=== PATIENT | female | born 1990 ===

== ENCOUNTER → 2016-12-02 | Outpatient (CLI) | payer OTHER ==
[~2016-12-02] MED LIST: FERR1TAB23 PO; MISC-696; PRENTAB26 PO; VNTHFA/IN INH
[2016-12-02 18:21] LABS: URINE APPEARANCE CLEAR (CLEAR); URINE BILIRUBIN NEG (NEG); URINE COLOR YELLOW; URINE NITRITE NEG (NEG); URINE SPECIFIC GRAVITY 1.011 (1.000-1.030); UROBILINOGEN NEG (NEG)
[2016-12-02 18:25] LABS: MANUAL MICROSCOPIC REQUIRED? NO; REVIEW REQ? NO
== END | disposition home or self-care (01) ==
LOC: C.LABSPEC 17:40
PROVIDERS: ATTEND Obstetrics & Gynecology
DX: Z34.01 Encounter for supervision of normal first pregnancy, first trimester (principal)

== ENCOUNTER → 2016-12-03 | Outpatient (CLI) | payer OTHER | END | disposition home or self-care (01) | LOC: C.PAPS 16:38 | PROVIDERS: ATTEND Obstetrics & Gynecology | DX: Z34.01 Encounter for supervision of normal first pregnancy, first trimester (principal) ==

== ENCOUNTER → 2016-12-03 | Outpatient (CLI) | payer OTHER ==
[2016-12-03 14:41] LABS: BASO % 0.2 %; BASO ABS # 0.03 K/uL (0-0.2); COMPLETE YES; EOS % 4.3 %; IG% 0.2 %; LYMPH % 14.4 %; LYMPH ABS # 1.85 K/uL (1.2-3.4); MEAN CELL VOLUME 89.2 fL (80-100); MEAN CORPUSCULAR HEMOGLOBIN 31.7 pg (25-34); MEAN CORPUSCULAR HGB CONC 35.5 g/dl (32-36); MEAN PLATELET VOLUME 11.4 fL (7.4-10.4); MONO % 5.6 %; NEUT % 75.3 %; PLATELET COUNT 265 K/uL (130-400); RED BLOOD COUNT 4.26 M/uL (4.2-5.4); WHITE BLOOD COUNT 12.89 K/uL (4.8-10.8)
[2016-12-07 09:32] LABS: CHLAMYDIA TRACH RNA*** NOT DETECTED (NOT DETECTED); GC (NEIS GONORRHOEAE)RNA** NOT DETECTED (NOT DETECTED)
== END | disposition home or self-care (01) ==
LOC: C.LAB1850 12:21
PROVIDERS: ATTEND Obstetrics & Gynecology
DX: Z34.01 Encounter for supervision of normal first pregnancy, first trimester (principal)

== ENCOUNTER → 2017-02-02 | Outpatient (CLI) | payer OTHER ==
[2017-02-02 15:15] LABS: GTGD 50 Grams
== END | disposition home or self-care (01) ==
LOC: C.LAB1850 12:29
PROVIDERS: ATTEND Obstetrics & Gynecology
DX: Z34.02 Encounter for supervision of normal first pregnancy, second trimester (principal)

== ENCOUNTER → 2017-04-18 | Outpatient (CLI) | payer OTHER ==
[2017-04-18 16:13] LABS: MANUAL MICROSCOPIC REQUIRED? NO; REVIEW REQ? NO; URINE APPEARANCE CLEAR (CLEAR); URINE BILIRUBIN NEG (NEG); URINE COLOR YELLOW; URINE NITRITE NEG (NEG); URINE SPECIFIC GRAVITY 1.016 (1.000-1.030); UROBILINOGEN NEG (NEG)
== END | disposition home or self-care (01) ==
LOC: C.LABSPEC 15:04
PROVIDERS: ATTEND Obstetrics & Gynecology
DX: Z34.03 Encounter for supervision of normal first pregnancy, third trimester (principal)

== ENCOUNTER → 2017-04-18 | Outpatient (CLI) | payer OTHER ==
[2017-04-18 13:03] LABS: HEMATOCRIT 32.9 % (37-47)
[2017-04-18 13:28] LABS: GTGD 50 Grams
== END | disposition home or self-care (01) ==
LOC: C.LAB1850 11:57
PROVIDERS: ATTEND Obstetrics & Gynecology
DX: Z34.03 Encounter for supervision of normal first pregnancy, third trimester (principal)

== ENCOUNTER → 2017-05-24 | Outpatient (CLI) | payer OTHER ==
[2017-05-24 16:59] LABS: ALT/SGPT 25 U/L (12-78); BLOOD UREA NITROGEN 10 mg/dl (7-18); BUN/CREATININE RATIO 14.9 (10-20); CALCIUM 9.4 mg/dl (8.5-10.1); CARBON DIOXIDE 24 mmol/L (21-32); CHLORIDE 105 mmol/L (98-107); GLUCOSE 76 mg/dl (70-99); POTASSIUM 3.8 mmol/L (3.5-5.1); SODIUM 138 mmol/L (136-145)
[2017-05-24 17:02] LABS: ALB/GLOB RATIO 0.6 (0.9-2); ALKALINE PHOSPHATASE 102 U/L (45-117); AST/SGOT 20 U/L (15-37)
[2017-06-02 22:20] LABS: CHENODEOXYCHOLIC ACID 2.6 umol/L (< OR = 3.1); CHOLIC ACID <0.5 umol/L (< OR = 1.8); DEOXYCHOLIC ACID 0.5 umol/L (< OR = 2.4); TOTAL BILE ACIDS 3.1 umol/L (< OR = 6.8)
== END | disposition home or self-care (01) ==
LOC: C.LAB1850 15:48
PROVIDERS: ATTEND Obstetrics & Gynecology
DX: O99.713 Diseases of the skin and subcutaneous tissue complicating pregnancy, third trimester (principal)

== ENCOUNTER 2017-06-13 18:00 | Inpatient (IN) | payer OTHER ==
[~2017-06-13] VITALS: Ht 154.9 cm; Wt 82.5 kg
[2017-06-13] MEDS ORDERED: LACTATED RINGER'S 1000ML 1,000 ML IV PRN (19:36)
[2017-06-13] MEDS ORDERED: PRENTAB26 PO (19:45)
[2017-06-13] MEDS ORDERED: FERR1TAB23 PO (19:45)
[2017-06-13] MEDS ORDERED: PENICILLIN G POTASSIUM IV 3 MU in DEXTROSE 5% 100ML 100 ML IV PRN (19:45)
[2017-06-13] MEDS ORDERED: VNTHFA/IN INH (19:45)
[2017-06-13 19:51] VITALS: Ht 154.9 cm; Wt 82.5 kg
[2017-06-13] MEDS ORDERED: EpHEDrine SULFATE INJ 50 MG/ML AMP ONE (19:55)
[2017-06-13] MEDS ORDERED: BUPIVACAINE 0.25% 30 ML VIAL ONE ×2 (19:55→21:20)
[2017-06-13] MEDS ORDERED: FENTANYL CITRATE INJ 50 MCG/1 ML 2 ML VIAL ONE (19:56)
[2017-06-13] MEDS ORDERED: FENTANYL 2MCG/ML ROPIV 1.25MG/ML 100ML BAG EPI ONE (19:56)
[2017-06-13] MEDS ORDERED: PENICILLIN G POTASSIUM IV 6 MU in DEXTROSE 5% 250ML 250 ML IV ONE (20:00)
[2017-06-13 20:10] LABS: MEAN CORPUSCULAR HGB CONC 33.8 g/dl (32-36)
[2017-06-13 20:30] LABS: HEMATOCRIT 33.4 % (37-47); MEAN CELL VOLUME 86.8 fL (80-100); MEAN CORPUSCULAR HEMOGLOBIN 29.4 pg (25-34); PLATELET COUNT 140 K/uL (130-400); PLT ESTIMATE NORMAL; RED BLOOD COUNT 3.85 M/uL (4.2-5.4)
[2017-06-13] MEDS: LACTATED RINGER'S 1000ML 1,000 ML IV SCH ×2 (20:42→22:41)
[2017-06-13] MEDS ORDERED: NALOXONE HCL INJ 1 MG in SODIUM CHLORIDE 0.9% 1000ML 1,000 ML IV PRN (21:46)
[2017-06-13] MEDS ORDERED: LACTATED RINGER'S 1000ML 500 ML IV PRN ×2 (21:46→22:11)
[2017-06-13] MEDS ORDERED: ONDANSETRON INJ 2 MG/ML 2 ML VIAL IV PRN (22:00)
[2017-06-13] MEDS ORDERED: NALBUPHINE HCL INJ 10 MG/ML AMP IV PRN (22:00)
[2017-06-13] MEDS ORDERED: EpHEDrine SULFATE INJ 50 MG/ML AMP IV PRN (22:00)
[2017-06-13] MEDS ORDERED: DiphenhydrAMINE HCL 50 MG/ML VIAL IV PRN (22:00)
[2017-06-13] MEDS ORDERED: NALOXONE HCL INJ 0.4 MG/1 ML VIAL/CARP IV PRN (22:00)
[2017-06-13] MEDS ORDERED: FENTANYL 2MCG/ML ROPIV 1.25MG/ML 100ML BAG EPI PRN (22:00)
[2017-06-13] MEDS ORDERED: OXYTOCIN 30 UNITS/500ML NSS IV PRN (22:15)
[2017-06-13] MEDS ORDERED: CALCIUM CARBONATE 500 MG CHEWABLE PO PRN (22:30)
[2017-06-13] MEDS ORDERED: RANITIDINE HCL 150 MG TAB PO ONE (22:30)
[2017-06-14] MEDS ORDERED: ACETAMINOPHEN 325 MG TAB PO PRN (00:30)
[2017-06-14] MEDS ORDERED: OXYTOCIN 30 UNITS/500ML NSS IV PRN (00:30)
[2017-06-14] MEDS ORDERED: LANOLIN OINT EXT PRN ×2 (00:30)
[2017-06-14] MEDS ORDERED: HYDROCORTISONE ACETATE 25 MG SUPP PR PRN (00:30)
[2017-06-14] MEDS ORDERED: OXYCODONE/ACETAMINOPHEN 5-325 TAB PO PRN (00:30)
[2017-06-14] MEDS ORDERED: SUPERCREAM 0.870 % 15GM JAR EXT PRN (00:30)
[2017-06-14] MEDS ORDERED: BENZOCAINE 20% AER SPR 82.5 GM CAN EXT PRN (00:30)
[2017-06-14] MEDS ORDERED: METHYLERGONOVINE MALEATE 0.2 MG/ML AMP ONE (01:17)
[2017-06-14] MEDS ORDERED: NURSING VERBAL MED ORDER ONE ×2 (01:45→02:15)
[2017-06-14] MEDS ORDERED: MoRPHine SULFATE 10 MG/ML CARP/VIAL ONE (01:46)
--- NOTE | 2017-06-14 02:13 | Progress Note ---
Progress Note Date of Service Jun 14, 2017. Progress Note Called to patient room for large blood clots per vagina. Patient is awake, feeling well, talking. Vitals stable. Pelvic exam reveals multiple clots - administered 6mg morphine IM for pain control, repeated exam, extracted multiple large clots. Chux with clots weighed - 860g. Vaginal bleeding appears to have stopped, patient's vitals remain stable and she remains asymptomatic. Will continue to monitor.
[2017-06-14 06:05] VITALS: BP 132/77; PULSE 95; TEMP 36.9; O2SAT 97
--- NOTE | 2017-06-14 07:26 | DELIVERY SUMMARY ---
DATE OF OPERATION: 06/13/2017 NOTICE TO RECEIVING [facility]ENCY This information is strictly Confidential and protected under [place] law. [place] law prohibits you from making any further disclosure of this information unless further disclosure is expressly permitted by the written consent of the person to whom it pertains or is authorized by law. A general authorization for the release of medical or other information is not sufficient for this purpose. Hospital accepts no responsibility if the information is made available to any other person, INCLUDING THE PATIENT. PRE-DELIVERY DIAGNOSES: 1. 27-year-old at 36 weeks 1 day. 2. Premature rupture of membranes 3. Depression and anxiety. 4. Ultrasound findings with kidney cyst not seen on repeat scan and dilated bowel. 5. Pruritus with negative Bile acids and LFT. 6. Asthma. 7. Family history of patient's mother delivering G1 first baby with trisomy 18. POST-DELIVERY DIAGNOSES: Same. PROCEDURES: Spontaneous vaginal delivery and repair of left periclitoral laceration. ANESTHESIA: Epidural. ESTIMATED BLOOD LOSS: 300 mL. FINDINGS: Viable female with Apgars 7 and 9. Weight pending; please see nursery record. DESCRIPTION OF DELIVERY: The patient progressed to complete with epidural anesthesia. She then began to push. She then spontaneously vaginally delivered a viable from the cephalic presentation. The head delivered followed by the anterior and the posterior shoulder and the body. No nuchal cord was noted. The baby was placed on mother's abdomen. A spontaneous cry was heard. The cord was doubly clamped and cut. A cord segment was retained for cord gases. Cord blood was obtained. Placenta was then delivered spontaneously intact with a 3-vessel cord. Pitocin was given. The uterus and vagina were swept of all clots of debris. The uterus became firm. The cervix, vagina and perineum were inspected for lacerations and a left periclitoral laceration was noted. This was repaired using 3-0 Vicryl in running and interrupted stitches. Excellent hemostasis was noted. 1% lidocaine was used to achieve anesthetic pain control during the suturing. The patient and the baby tolerated the delivery well and are recovering in the room. All instrument, needle and sponge counts were correct at the conclusion of the delivery. Estimated blood loss 300 mL. I attest to the content of the Intraoperative Record and any orders documented therein. Any exceptions are noted below. MTDD
[2017-06-14] MEDS: DOCUSATE SODIUM 100 MG CAP PO SCH ×2 (07:39→19:53)
--- NOTE | 2017-06-14 08:08 | Progress Note ---
Subjective Jun 14, 2017. Subjective conversation w/ patient, physical exam, chart review, lab review Ambulation: ambulating normally Voiding: no voiding problems Passing Gas: Yes Diet Tolerance: Regular Diet Lochia: Moderate Feeding Type: Breast Feeding Comment: Pt seen and examined at bedside. Blood clots have resolved. Review of Systems Constitutional: No fever, No chills Respiratory: No shortness of breath Cardiac: No chest pain, No palpitations Abdomen: No nausea, No vomiting Female : No dysuria Objective Vital Signs Date Time Temp Pulse Resp B/P (MAP) Pulse Ox O2 Delivery O2 Flow Rate FiO2 06/14/17 06:08 Room Air 06/14/17 06:05 36.9 95 16 132/77 (95) 97 Room Air Physical Exam General Appearance: WELL-APPEARING, WD/WN, NO APPARENT DISTRESS Fundus: Firm, Tender (appropriately tender), Relation to Umbilicus (1 below u) Extremities: no pedal edema, no calf tenderness Laboratory Results Last 24 Hours Test 06/13/17 20:00 White Blood Count 13.20 K/uL Red Blood Count 3.85 M/uL Hemoglobin 11.3 g/dL Hematocrit 33.4 % Mean Corpuscular Volume 86.8 fL Mean Corpuscular Hemoglobin 29.4 pg Mean Corpuscular Hemoglobin Concent 33.8 g/dl RDW Standard Deviation 56.6 fL RDW Coefficient of Variation 17.8 % Platelet Count 140 K/uL Platelet Estimate NORMAL Assessment and Plan Post- Day#: 1 Continue Routine Care: Pt is doing well clinically. - VS reviewed and WNL. - Hgb 11.3 - Blood type O+/GBS unknown - Encourage ambulation, monitor and control pain with Motrin PRN, continue regular diet, monitor lochia - Continue support - Blood clots per vagina have resolved. Resident Physician Supervision Note: I was present with Dr. Barahona during the history and exam. I discussed the case with the resident and agree with the findings and plan as documented in the note. Any exceptions or clarifications are listed here: PPD#1 doing well. Vaginal bleeding has slowed - no longer passing clots. Continue routine care. Documented By: Yael Finnegan
[2017-06-14 08:45] VITALS: BP 109/70; PULSE 96; TEMP 37.1
[2017-06-14] MEDS: IBUPROFEN 600 MG TAB PO PRN ×2 (08:55→16:09)
[2017-06-14 12:09] LABS: HEMATOCRIT 27.4 % (37-47)
[2017-06-14 12:20] VITALS: BP 128/80; PULSE 74; TEMP 36.7
[2017-06-14 15:50] VITALS: BP 111/74; PULSE 94; TEMP 37.1
[2017-06-14 20:25] VITALS: BP 122/74; PULSE 94; TEMP 36.8
[2017-06-15] VITALS: BP 113/71; PULSE 91; TEMP 36.7
[2017-06-15] MEDS: IBUPROFEN 600 MG TAB PO PRN ×4 (00:07→22:20)
--- NOTE | 2017-06-15 04:56 | Discharge Instructions ---
Discharge Instructions Date of Service Jun 15, 2017. Admission Reason for Admission: Check Rupture Discharge Discharge Diagnosis / Problem: Check rupture, delivery Discharge Goals Goal(s): Routine recovery after delivery Medications Continue Dispensed Medications: supercream, dermaplast, tucks, lansinoh Activity Recommendations Activity Limitations: per Instructions/Follow-up section . Instructions / Follow-Up Instructions / Follow-Up ACTIVITY RECOMMENDATIONS: * Gradual return to full activity over the next 2-3 weeks. * No lifting - nothing heavier than baby over the next 2-3 weeks. * Do not engage in vigorous exercise, sexual activity or sports until cleared by your physician. * Do not drive or operate any motorized equipment until cleared by your physician. * You may shower/bathe daily. MEDICATIONS: For discomfort or pain, you may use Acetaminophen (Tylenol), Ibuprofen (Advil), or Naproxen (Aleve) following the package directions. For constipation you may use Colace following the package directions. BREAST CARE: If you are not breast feeding: * Wear a supportive bra 24 hours a day for one to two weeks. * Avoid stimulating your breasts and nipples as much as possible during the first few weeks after delivery. * When taking a shower, have the warm water hit your back, not breasts. * When your breasts feel full, apply ice packs. Usually three to four times a day helps ease the discomfort. * Take a mild pain medication (Tylenol / Motrin) when you are uncomfortable. If breast feeding: * Use breast milk to lubricate nipples. Lansinoh cream may be used for sore nipples. You do not need to remove cream prior to breast feeding. If using a different brand of cream, check the label for directions regarding removal of cream prior to nursing. * Wear a supportive bra. * If having problems with breasts or breast feeding, call a travel sales consultant or your health care provider. EPISIOTOMY CARE: After delivery, if you have an episiotomy (stitches), the following steps will ease discomfort and aid healing. * For the first 24 hours after delivery, place ice packs next to your episiotomy to help reduce swelling. * After the first 24 hour-period, sitz baths, either portable or in the tub, are suggested. A shower with a shower arm sprayed over the episiotomy may be comforting. * Amy care should be done after each voiding and bowel movement. Squirt warm water from a plastic bottle over the perineum (region of the body between the anus and urinary opening) and pat dry. * Use Dermoplast to ease discomfort. Shake container. [place] directly over the episiotomy. Place a Tucks on a clean sanitary pad next to your episiotomy. SPECIAL CARE INSTRUCTIONS: When you are discharged from the hospital, it is important for you to follow the instructions listed below: * During the first week at home, you should be able to care for yourself and your baby. In addition, the usual light household activities are encouraged. * Limit your activities to the way you feel. Do not try to clean the house or move furniture. Be sensible. * If you actively engage in sports and have done so up until the time of your delivery, you may resume these activities as soon as you feel able. This may take up to one month or even longer. Use good judgment. * Continue to take your vitamins for at least six weeks after the of your baby. * Your diet need not be limited unless you were on a special diet before your delivery. Breast-feeding mothers need around 2500 calories per day and at least 64-80 ounces of fluid per day (8 to 10 glasses). * You should eat foods from the four major food groups. Crash diets or fad diets are to be avoided. Eating lean meats, fresh fruits and vegetables, low-fat dairy products, high fiber foods and a regular exercise program, will help you get back to your pre- weight without putting your health at risk. * Constipation is sometimes a problem after delivery. Take a mild laxative as needed. If breast feeding, Milk of Magnesia is acceptable to use. You may use a suppository or Fleets enema if no episiotomy. * A daily shower or tub bath is suggested. Be sure to thoroughly and gently dry the perineum. * A bloody vaginal discharge will usually continue until around four weeks post . A small amount of bleeding may continue for as long as six weeks. Vaginal discharge changes from the bright red bleeding after delivery to pink then brownish and finally yellowish-pink before becoming white and disappearing. * Bleeding may increase with activity. Your first period may come in 4-8 weeks. If you are breast feeding, your period may be delayed even longer. * [place] (sex) can begin whenever both you and your partner feel comfortable and do not have any form of genital infection. It is recommended that you wait at least six weeks for internal and external healing to occur. If you have questions, please talk to your health care practitioner. A condom should be used to prevent infection and . * Foreplay, gentle intercourse and lubrication is very important the first several times to prevent pain. A water-based lubricant such as K-Y jelly or Astroglide may be used. * If you have RH negative blood and your baby is RH positive, you will receive RHOGAM by injection prior to discharge. The nurse will give you a card to keep with you that has the date and place that you received RHOGAM after delivery. * During your care, you had a Rubella screen done to check for the presence of rubella antibodies in your blood. If your test was negative, you will receive a Rubella vaccine prior to discharge. This vaccine may cause a fever, soreness at the injection site and flu-like symptoms. If these symptoms persist, notify your health care practitioner. is not advised for one month after a Rubella vaccine. * Verbalizes understanding of car seat law as reviewed with patient nursing. * Car Seat hand-out given and reviewed with patient by nursing. * Shaken baby information reviewed with patient by nursing. Call you doctor if: * Heavy bleeding (saturating several pads an hour) or passing clots the size of your fist. * A fever >101 degrees F (38.3 degrees C) on two occasions four hours apart and /or chills. * Unusual pain in the pelvic or vaginal areas. * "Baby Blues" lasting longer than two weeks. If you have any questions or concerns, call your health care practitioner at . FOLLOW UP VISIT: * Please call the office at to schedule a 6 week examination. It is important you keep this appointment. It is important for you to make arrangements for either yearly or twice yearly check-ups thereafter. Current Hospital Diet Patient's current hospital diet: Regular OB Diet Discharge Diet Recommended Diet: Regular Diet Pending Studies Studies pending at discharge: no Medical Emergencies . Who to Call and When: Medical Emergencies: If at any time you feel your situation is an emergency, please call 911 immediately. . Non-Emergent Contact Non-Emergency issues call your: Primary Care Provider . . "Provider Documentation" section prepared by Bren Barahona. . VTE Core Measure Inpt VTE Proph given/why not?: SCD's
--- NOTE | 2017-06-15 07:01 | Progress Note ---
Subjective Jun 15, 2017. Subjective conversation w/ patient, physical exam Ambulation: ambulating normally Voiding: no voiding problems Passing Gas: Yes Diet Tolerance: Regular Diet Lochia: Small Feeding Type: Breast Feeding Comment: GBS status still pending Review of Systems Female : No see HPI, No dysuria, No urinary frequency, No hematuria, No incontinence, No abnormal vaginal bleeding, No vaginal discharge, No problem reported Objective Vital Signs Date Time Temp Pulse Resp B/P (MAP) Pulse Ox O2 Delivery O2 Flow Rate FiO2 06/15/17 00:00 Room Air 06/15/17 00:00 36.7 91 18 113/71 (85) Room Air 06/14/17 20:25 36.8 94 14 122/74 (90) Room Air 06/14/17 15:50 37.1 94 16 111/74 (86) Room Air 06/14/17 15:50 Room Air 06/14/17 12:20 36.7 74 16 128/80 (96) Room Air 06/14/17 08:45 Room Air 06/14/17 08:45 37.1 96 16 109/70 (83) Room Air Physical Exam General Appearance: WELL-APPEARING, NO APPARENT DISTRESS Abdomen: non tender, soft Fundus: Firm, Non-Tender, Relation to Umbilicus (2 below U) Extremities: no calf tenderness Laboratory Results Last 24 Hours Test 06/14/17 11:56 06/15/17 04:44 Hemoglobin 9.2 g/dL Hematocrit 27.4 % Assessment and Plan Post- Day#: 2 Continue Routine Care: stable course GBS status pending because it was done 2 days ago continue current care plan
[2017-06-15] MEDS: DOCUSATE SODIUM 100 MG CAP PO SCH ×2 (08:34→20:08)
[2017-06-15 08:40] VITALS: BP 114/71; PULSE 96; TEMP 36.7; O2SAT 97
[2017-06-15] MEDS: FERROUS SULFATE 325 MG TAB PO SCH (08:56)
[2017-06-15 08:59] LABS: HEMATOCRIT 28.1 % (37-47)
[2017-06-15 16:30] VITALS: BP 107/68; PULSE 94; TEMP 36.6; O2SAT 97
[2017-06-15] MEDS ORDERED: BISACODYL 5 MG TABEC PO SCH (20:00)
[2017-06-16 01:05] VITALS: BP 113/70; PULSE 96; TEMP 36.8
[2017-06-16] MEDS: IBUPROFEN 600 MG TAB PO PRN (05:51)
--- NOTE | 2017-06-16 06:39 | OB/GYN Progress Note ---
INVESTMENT PROFESSIONAL Progress Note Date of Service Jun 16, 2017. Subjective conversation w/ patient, physical exam, chart review, lab review Ambulation: ambulating normally Voiding: no voiding problems Passing Gas: Yes Diet Tolerance: Regular Diet Lochia: Moderate Feeding Type: Breast Feeding Pain: mid abdominal discomfort reported Review of Systems Respiratory: No shortness of breath Cardiac: No chest pain, No edema Abdomen: No nausea, No vomiting, No diarrhea Objective Vital Signs Date Time Temp Pulse Resp B/P (MAP) Pulse Ox O2 Delivery O2 Flow Rate FiO2 06/16/17 01:05 36.8 96 20 113/70 (84) Room Air 06/16/17 01:05 Room Air 06/15/17 16:30 36.6 94 24 107/68 (81) 97 Room Air 06/15/17 16:30 97 Room Air 06/15/17 08:40 36.7 96 16 114/71 (85) 97 Room Air 06/15/17 08:40 97 Room Air Physical Exam General Appearance: WELL-APPEARING, WD/WN, NO APPARENT DISTRESS Respiratory/Chest: no respiratory distress, no accessory muscle use, + wheezing Cardiovascular: regular rate, rhythm, no gallop, no JVD Abdomen: normal bowel sounds, soft Fundus: Firm, Tender, Relation to Umbilicus (uterus at level of U) Extremities: non-tender, normal inspection, no calf tenderness Laboratory Results Last 24 Hours Test 06/15/17 08:35 Hemoglobin 8.9 g/dL Hematocrit 28.1 % Assessment and Plan Post- Day Number: 3 Continue Routine Care: Pt is doing well clinically. - VS reviewed and WNL. - Hgb 06/13 11.3, 06/14 9.2, 06/15 8.9 - Blood type O+/GBS unknown - Encourage ambulation, monitor and control pain with Motrin PRN, continue regular diet, monitor lochia - Continue support - Blood clots per vagina - pt reports 1 kiwi-sized clot, thin, passed yesterday evening during BM. Follow. - Pt requests script for breast pump.PGY 1 Dr. Barahona Resident Physician Supervision Note: I was present with Dr. Barahona during the history and exam. I discussed the case with the resident and agree with the findings and plan as documented in the note. Any exceptions or clarifications are listed here: Doing well, ready for d/c, instructions reviewed. f/u 6 wk pp check. Documented By: Jerri Henry Resident Tracking Resident Involvement: Resident Care Provided Care Provided: Adult Hospital Medicine
[2017-06-16] MEDS ORDERED: MISC-696 (07:15)
[2017-06-16 07:55] VITALS: BP 113/71; PULSE 93; TEMP 36.6
[2017-06-16] MEDS: FERROUS SULFATE 325 MG TAB PO SCH (09:00)
[2017-06-16] MEDS: DOCUSATE SODIUM 100 MG CAP PO SCH (09:00)
[2017-06-16 09:24] VITALS: BP_DIAS 71; PULSE 93; TEMP 36.6
== END 2017-06-16 14:05 | disposition home or self-care (01) | DRG 774 ==
LOC: C.LD 18:00 → C.OPB 18:00 → C.LD 19:38 → C.OPB 19:38 → C.OBG 06-14 03:40
PROVIDERS: ADMIT Obstetrics & Gynecology; ATTEND Obstetrics & Gynecology
PROC: 0HQ9XZZ Repair Perineum Skin, External Approach (ICD-10-PCS; principal; 2017-06-13)
PROC: 10E0XZZ Delivery of Products of Conception, External Approach (ICD-10-PCS; principal; 2017-06-13)
DX: O42.013 Preterm premature rupture of membranes, onset of labor within 24 hours of rupture, third trimester (principal); O72.1 Other immediate postpartum hemorrhage; O70.0 First degree perineal laceration during delivery; Z3A.36 36 weeks gestation of pregnancy; O28.3 Abnormal ultrasonic finding on antenatal screening of mother; O99.344 Other mental disorders complicating childbirth; F32.9 Major depressive disorder, single episode, unspecified; O99.52 Diseases of the respiratory system complicating childbirth; J45.909 Unspecified asthma, uncomplicated; O99.72 Diseases of the skin and subcutaneous tissue complicating childbirth; L29.9 Pruritus, unspecified; Z82.79 Family history of other congenital malformations, deformations and chromosomal abnormalities; Z37.0 Single live birth

== ENCOUNTER → 2017-06-13 | Outpatient (CLI) | payer OTHER ==
[2017-06-14 12:38] LABS: URINE APPEARANCE CLEAR (CLEAR); URINE BILIRUBIN NEG (NEG); URINE COLOR YELLOW; URINE NITRITE NEG (NEG); URINE SPECIFIC GRAVITY 1.013 (1.000-1.030); UROBILINOGEN NEG (NEG)
[2017-06-14 12:39] LABS: MANUAL MICROSCOPIC REQUIRED? NO; REVIEW REQ? NO
== END | disposition home or self-care (01) ==
LOC: C.LABSPEC 17:43
PROVIDERS: ATTEND Obstetrics & Gynecology
DX: Z34.03 Encounter for supervision of normal first pregnancy, third trimester (principal); R39.9 Unspecified symptoms and signs involving the genitourinary system

== ENCOUNTER 2017-06-28 18:13 | Observation (INO) | payer OTHER ==
[~2017-06-28] VITALS: Ht 154.9 cm; Wt 73.5 kg
[2017-06-28] MEDS ORDERED: SODIUM CHLORIDE 0.9% 1000ML 1,000 ML IV STA (18:46)
[2017-06-28] MEDS ORDERED: DiphenhydrAMINE HCL 50 MG/ML VIAL IV STA (18:53)
[2017-06-28] MEDS ORDERED: ACETAMINOPHEN 500 MG TAB PO STA (18:53)
[2017-06-28 19:39] LABS: BASO % 0.2 %; BASO ABS # 0.02 K/uL (0-0.2); EOS % 3.2 %; HEMATOCRIT 26.3 % (37-47); IG% 0.3 %; LYMPH % 17.7 %; LYMPH ABS # 1.94 K/uL (1.2-3.4); MEAN CELL VOLUME 88.3 fL (80-100); MEAN CORPUSCULAR HEMOGLOBIN 28.9 pg (25-34); MEAN CORPUSCULAR HGB CONC 32.7 g/dl (32-36); MEAN PLATELET VOLUME 11.3 fL (7.4-10.4); MONO % 5.7 %; NEUT % 72.9 %; PLATELET COUNT 293 K/uL (130-400); RED BLOOD COUNT 2.98 M/uL (4.2-5.4); WHITE BLOOD COUNT 10.97 K/uL (4.8-10.8)
[2017-06-28 19:50] LABS: PARTIAL THROMBOPLASTIN RATIO 0.9; PROTHROMBIN TIME (PATIENT) 10.6 SECONDS (9.0-12.0)
[2017-06-28 19:58] LABS: BUN/CREATININE RATIO 14.3 (10-20); CALCIUM 8.7 mg/dl (8.5-10.1); CREATININE 0.82 mg/dl (0.60-1.20); POTASSIUM 3.6 mmol/L (3.5-5.1)
[2017-06-28 20:01] LABS: ALB/GLOB RATIO 0.8 (0.9-2)
[2017-06-28 20:05] LABS: ANISOCYTOSIS PRESENT; COMPLETE YES; POLYCHROMASIA 1+
[2017-06-28 20:24] LABS: URINE APPEARANCE CLEAR (CLEAR); URINE BILIRUBIN NEG (NEG); URINE COLOR YELLOW; URINE NITRITE NEG (NEG); URINE PH 5.5 (4.5-7.5); URINE SPECIFIC GRAVITY 1.028 (1.000-1.030); UROBILINOGEN NEG (NEG)
[2017-06-28 20:26] LABS: MANUAL MICROSCOPIC REQUIRED? NO; REVIEW REQ? NO
--- NOTE | 2017-06-28 20:45 | DIAGNOSTIC IMAGING REPORT ---
PELVIC ULTRASOUND CLINICAL HISTORY: vaginal bleeding. COMPARISON STUDY: ultrasound May 30, 2017. TECHNIQUE: Transabdominal sonography of the pelvis was performed. Transvaginal imaging was not performed in this patient given recent delivery. FINDINGS: The uterus is enlarged, measuring 13.3 x 5.8 x 7 cm. The endometrium is markedly thickened and heterogeneous. The endometrium within the lower uterine segment is not particularly hypervascular. However, there is significant hypervascularity within the uterine fundus. This is most pronounced within the posterior aspect of the uterine body and uterine fundus. The right ovary was not visualized. The left ovary was sonographically normal. No free fluid was identified. IMPRESSION: 1. Heterogeneous, markedly thickened endometrium with hypervascularity of the endometrium within the uterine fundus and to a lesser extent the uterine body. Given the clinical history, the findings suggest retained products of conception. 2. Nonvisualization of the right ovary. Sonographically normal left ovary. Electronically signed by: Jhony Garcia M.D. 06/28/2017 8:44 PM Dictated Date/Time: 06/28/2017 8:40 PM
--- NOTE | 2017-06-28 20:54 | EMERGENCY ROOM VISIT NOTE ---
History Report prepared by Low: Clarisse Cartagena Under the Supervision of: Dr. Elio Brown M.D. First contact with patient: 18:34 Chief Complaint: ED VAG BLEEDING Stated Complaint: POST BLEEDING History of Present Illness The patient is a 27 year old female who presents to the Emergency Room with complaints of constant vaginal bleeding starting 4 days ago. The patient states that she had her baby 2 weeks ago and she was four weeks early. She states things with the baby are going well and she is breast feeding. She reports that the was vaginal. She states that the blood is bright red and she is passing clots the size of her hand. The patient notes that she goes through a pad every 2 hours. The patient complains of abdominal cramping. She states that these feel like the start of contractions. She notes she took 2 500 mg Tylenol last night with no relief. She currently rates her pain as a 5/10 in severity. Source of History: patient Onset: 4 days ago Position: other (vagina) Symptom Intensity: 5/10 Quality: cramping ("start of contractions") Timing: constant Associated Symptoms: + abdominal pain Review of Systems See HPI for pertinent positives & negatives. A total of 10 systems reviewed and were otherwise negative. Past Medical & Surgical Medical Problems: (1) Asthma (2) Delayed hemorrhage (3) Retained products of conception with hemorrhage (4) SROM (spontaneous rupture of membranes) Family History Cancer FH: HTN (hypertension) FH: diabetes mellitus No pertinent family history Social History Smoking Status: Never Smoker Smokeless Tobacco Use: No Alcohol Use: none Drug Use: none Marital Status: in relationship Housing Status: lives with family Occupation Status: employed Current/Historical Medications Scheduled Albuterol Hfa (Ventolin Hfa), 2 PUFFS INH Q6H Ferrous Sulfate (Iron), 325 MG PO BID Multivit/Min/Iron/Fol Ac/Pren ( Vitamin), 1 TAB PO DAILY Durable Medical Equipment Misc. Devices (Breast Pump), BOX Allergies Coded Allergies: Shellfish (Verified Allergy, Unknown, SWELLING, ITCHING, 06/28/17) Physical Exam Vital Signs Date Time Temp Pulse Resp B/P (MAP) Pulse Ox O2 Delivery O2 Flow Rate FiO2 06/28/17 22:07 96 Room Air 06/28/17 21:50 87 20 102/48 96 Room Air 06/28/17 20:06 98 20 118/69 99 Room Air 06/28/17 18:16 37.1 104 18 102/54 99 Room Air Physical Exam GENERAL: Patient is a healthy-appearing well-nourished HEAD: Normocephalic atraumatic EYES: Ocular movements intact pupils equal and react to light OROPHARYNX mucous membranes are moist no exudates present no erythema or edema present NECK: Supple no nuchal rigidity CHEST: Good equal expansion LUNGS: Clear and equal to auscultation CARDIAC: Normal S1 and S2 ABDOMEN: Soft nontender no guarding BACK: No CVA tenderness EXTREMITIES: No pain upon palpation normal muscle strength in all groups no clubbing cyanosis or edema NEURO: Patient is following commands and answering questions appropriately. Alert and oriented x3 Cranial Nerves 2-12 grossly intact Medical Decision & Procedures ER Provider Diagnostic Interpretation: Radiology results as stated below per my review and radiologist interpretation: PELVIC ULTRASOUND CLINICAL HISTORY: vaginal bleeding. COMPARISON STUDY: ultrasound May 30, 2017. TECHNIQUE: Transabdominal sonography of the pelvis was performed. Transvaginal imaging was not performed in this patient given recent delivery. FINDINGS: The uterus is enlarged, measuring 13.3 x 5.8 x 7 cm. The endometrium is markedly thickened and heterogeneous. The endometrium within the lower uterine segment is not particularly hypervascular. However, there is significant hypervascularity within the uterine fundus. This is most pronounced within the posterior aspect of the uterine body and uterine fundus. The right ovary was not visualized. The left ovary was sonographically normal. No free fluid was identified. IMPRESSION: 1. Heterogeneous, markedly thickened endometrium with hypervascularity of the endometrium within the uterine fundus and to a lesser extent the uterine body. Given the clinical history, the findings suggest retained products of conception. 2. Nonvisualization of the right ovary. Sonographically normal left ovary. Electronically signed by: Jhony Garcia M.D. 06/28/2017 8:44 PM Dictated Date/Time: 06/28/2017 8:40 PM Laboratory Results 06/28/17 19:28 Red Blood Count 2.98, Mean Corpuscular Volume 88.3, Mean Corpuscular Hemoglobin 28.9, Mean Corpuscular Hemoglobin Concent 32.7, Mean Platelet Volume 11.3, Neutrophils (%) (Auto) 72.9, Lymphocytes (%) (Auto) 17.7, Monocytes (%) (Auto) 5.7, Eosinophils (%) (Auto) 3.2, Basophils (%) (Auto) 0.2, Neutrophils # (Auto) 8.01, Lymphocytes # (Auto) 1.94, Monocytes # (Auto) 0.62, Eosinophils # (Auto) 0.35, Basophils # (Auto) 0.02 06/28/17 19:28 Test 06/28/17 19:25 06/28/17 19:28 Urine Color YELLOW Urine Appearance CLEAR (CLEAR) Urine pH 5.5 (4.5-7.5) Urine Specific [place] 1.028 (1.000-1.030) Urine Protein NEG (NEG) Urine Glucose (UA) NEG (NEG) Urine Ketones TRACE (NEG) Urine Occult Blood TRACE (NEG) Urine Nitrite NEG (NEG) Urine Bilirubin NEG (NEG) Urine Urobilinogen NEG (NEG) Urine Leukocyte Esterase NEG (NEG) Urine WBC (Auto) 1-5 /hpf (0-5) Urine RBC (Auto) 0-4 /hpf (0-4) Urine Hyaline Casts (Auto) 1-5 /lpf (0-5) Urine Epithelial Cells (Auto) 5-10 /lpf (0-5) Urine Bacteria (Auto) NEG (NEG) Urine Test POS (NEG) White Blood Count 10.97 K/uL (4.8-10.8) Red Blood Count 2.98 M/uL (4.2-5.4) Hemoglobin 8.6 g/dL (12.0-16.0) Hematocrit 26.3 % (37-47) Mean Corpuscular Volume 88.3 fL (80-100) Mean Corpuscular Hemoglobin 28.9 pg (25-34) Mean Corpuscular Hemoglobin Concent 32.7 g/dl (32-36) Platelet Count 293 K/uL (130-400) Mean Platelet Volume 11.3 fL (7.4-10.4) Neutrophils (%) (Auto) 72.9 % Lymphocytes (%) (Auto) 17.7 % Monocytes (%) (Auto) 5.7 % Eosinophils (%) (Auto) 3.2 % Basophils (%) (Auto) 0.2 % Neutrophils # (Auto) 8.01 K/uL (1.4-6.5) Lymphocytes # (Auto) 1.94 K/uL (1.2-3.4) Monocytes # (Auto) 0.62 K/uL (0.11-0.59) Eosinophils # (Auto) 0.35 K/uL (0-0.5) Basophils # (Auto) 0.02 K/uL (0-0.2) RDW Standard Deviation 56.0 fL (36.4-46.3) RDW Coefficient of Variation 17.2 % (11.5-14.5) Immature Granulocyte % (Auto) 0.3 % Immature Granulocyte # (Auto) 0.03 K/uL (0.00-0.02) Polychromasia 1+ Anisocytosis PRESENT Prothrombin Time 10.6 SECONDS (9.0-12.0) Prothromb Time International Ratio 1.0 (0.9-1.1) Activated Partial Thromboplast Time 24.5 SECONDS (21.0-31.0) Partial Thromboplastin Ratio 0.9 Anion Gap 7.0 mmol/L (3-11) Est Creatinine Clear Calc Drug Dose 93.6 ml/min Estimated GFR () 112.9 Estimated GFR (Non- 97.4 BUN/Creatinine Ratio 14.3 (10-20) Calcium Level 8.7 mg/dl (8.5-10.1) Total Bilirubin 0.1 mg/dl (0.2-1) Aspartate Amino Transf (AST/SGOT) 17 U/L (15-37) Alanine Aminotransferase (ALT/SGPT) 30 U/L (12-78) Alkaline Phosphatase 90 U/L (45-117) Total Protein 6.3 gm/dl (6.4-8.2) Albumin 2.8 gm/dl (3.4-5.0) Globulin 3.5 gm/dl (2.5-4.0) Albumin/Globulin Ratio 0.8 (0.9-2) Labs reviewed by ED physician. Medications Administered Medications (Trade) Dose Ordered Sig/Adina Route Start Time Stop Time Status Last Admin Dose Admin Sodium Chloride 1,000 ml @ 999 mls/hr Q1H1M STAT IV 06/28/17 18:46 06/28/17 19:46 DC 06/28/17 19:33 999 MLS/HR Diphenhydramine HCl (Benadryl Inj) 50 mg NOW STAT IV 06/28/17 18:53 06/28/17 18:56 DC 06/28/17 19:33 50 MG Acetaminophen (Tylenol Tab) 1,000 mg NOW STAT PO 06/28/17 18:53 06/28/17 18:56 DC 06/28/17 19:33 1,000 MG Procedure Vaginal Exam: Removed several blood clots. Nontender. ED Course 1845: Ordered NSS 1000 ml @ 999 mls/hr IV. 1848: Past medical records reviewed. The patient was evaluated in room B8. A complete history and physical examination was performed. 1852: Ordered Tylenol Tab 1000 mg PO, Benadryl Inj 50 mg IV. 2104: I discussed the patient's case with Dr. Henry. She has agreed to evaluate the patient for further management and care. 2105: I reevaluated the patient and let her know that Dr. Henry would be coming. Medical Decision Etiologies such as ectopic , dysfunction uterine bleeding, bleeding dyscrasia, trauma, infection, as well as others were entertained. This is a 27-year-old female who presents emergency department complaining of continuous vaginal bleeding since delivering a baby 2 weeks ago. The patient is going through a pad approximately every 2 hours and is passing large clots. An IV was established, the patient given normal saline bolus. She was sent for pelvic ultrasound which was concerning for retained products of conception. Based on this finding I did discuss the case with the OB on-call who agreed to see the patient. Patient was in agreement with the treatment plan. Consults Time Called: 2047 Consulting Physician: Dr. Henry- [facility] [place] Returned Call: 2104 I discussed the patient's case with Dr. Henry. She has agreed to evaluate the patient for further management and care. Impression Primary Impression: Vaginal bleeding Scribe Attestation The scribe's documentation has been prepared under my direction and personally reviewed by me in its entirety. I confirm that the note above accurately reflects all work, treatment, procedures, and medical decision making performed by me. Departure Information Dispostion Being Evaluated By Hospitalist Referrals No Doctor, Assigned (PCP) Patient Instructions My [facility]
[2017-06-28] MEDS ORDERED: LACTATED RINGER'S 1000ML 1,000 ML IV SCH (21:49)
[2017-06-28] MEDS ORDERED: IV FLUIDS COMPLETED PRN (23:15)
[2017-06-29] VITALS (11 sets, daily range): BP systolic 95–117; BP diastolic 55–79; PULSE 81–98; TEMP 36.5–37.2; O2SAT 97–100; Ht 154.9 cm; Wt 73.5 kg
[2017-06-29] MEDS ORDERED: MIDAZOLAM HCL 1 MG/ML 2ML VIAL ONE (01:25)
[2017-06-29] MEDS ORDERED: FENTANYL CITRATE INJ 50 MCG/1 ML 2 ML VIAL ONE (01:25)
--- NOTE | 2017-06-29 01:25 | Progress Note ---
Progress Note Date of Service Jun 29, 2017. Progress Note On 06/28/17 at about 10pm and H&P was dictated on Nuance as stat. The patient is 2 wks with retained POCs expected. She has delayed hemorrhage. We plan surgery with D&C under US guidance. She signed a consent.
--- NOTE | 2017-06-29 01:31 | HISTORY & PHYSICAL EXAMINATION ---
DATE OF ADMISSION: 06/28/2017 CHIEF COMPLAINT: Heavy vaginal bleeding. HISTORY OF PRESENT ILLNESS: A 27-year-old 1, para 0, now approximately 2 weeks from normal spontaneous vaginal delivery, who presented to the Emergency Department with heavy vaginal bleeding since Tuesday. She notes changing of Maxi pad every 2 hours. She was passing large clots, the size of her fist. She began to have some symptoms of being lightheaded and dizzy and called the office. They advised her to come to the Emergency Room. She is breast feeding her baby. She noted episodes of waves of contractions and pain with passage of clots that did relieve the pain since Tuesday as well. She denied any other abdominal pain per se. She has been having difficulty sensing whether her bladder was completely empty. She has no initiation burning. She reports normal bowel function. She is tolerating regular food. No nausea, vomiting. Her hemoglobin 2 days after her delivery was 8.9. I was called by the Emergency Room physician today with the patient's vital signs on admission being stable. However, her admission hemoglobin was slightly lower at 8.6. She also had a slight elevation of her white count to 10.97 with a slight neutrophilia. She had normal coagulation studies, normal chemistries. She had undergone imaging prior to my consult, which showed a 13.3 x 5.8 x 7 cm uterus with a significant hypervascular area within the uterine fundus, most pronounced within the posterior uterine body. This finding was most consistent with retained products of conception. I was then consulted by the ER physician. OBSTETRICAL HISTORY: Vaginal delivery on 06/14/[address] Finnegan. Delivery note reviewed and no evidence of issues delivering the placenta was noted, although the patient's family notes that the doctor had to return to the room due to increased bleeding. That complicated by premature rupture of membranes and PTD at 36 and 1/7 weeks. GYNECOLOGIC HISTORY: No abnormal Pap smears, no STDs. PAST MEDICAL HISTORY: Asthma; history of depression, not currently treated. PAST SURGICAL HISTORY: Tonsillectomy. ALLERGIES: TO SHELLFISH. MEDICATIONS: Albuterol inhaler, ProAir inhaler and vitamins. SOCIAL HISTORY: Denies tobacco, alcohol or street drug use. FAMILY HISTORY: No congenital anomalies. REVIEW OF SYSTEMS: The patient denies knowing of a fever, although she felt cold and clammy off and on since Tuesday. Remainder of the review of systems is as per the HPI. No CP, SOB, no abdominal pain. Cramps prior to passage of large clots. Mother also feels that she saw some tissue or mucus in bathtub earlier today. PHYSICAL EXAMINATION: VITAL SIGNS: Temp 37.1; pulse 104 on arrival, now 87; blood pressure 102/48; pulse ox 96% on room air. ABDOMEN: Soft. Fundus approximately 4 cm down. Nontender at the fundus. VAGINA: Sterile vaginal exam performed but cervix not able to be well palpated. No significant blood loss noted on exam. The patient tender with palpating the vagina alone. ASSESSMENT: 1. Delayed hemorrhage. 2. Suspected retained products of conception. PLAN: I discussed with the patient and her family my recommendation to proceed to the operating room, and with ultrasound guidance, attempt to remove vascular tissue that is most likely consistent with retained products of conception. I discussed the risks, alternatives and complications including the do-nothing option. We discussed specifically perforation of the uterus, increased bleeding, infection and scar tissue within the uterus as possible complications. She is also aware of risks of anesthesia. A consent form is signed. She did eat a granola bar at 5:[address] into the hospital, and for that reason, her surgery will need to be delayed until 8 hours after unless her bleeding will worsen. She verbalized understanding of this. I will arrange for her to go to the floor and we will plan antibiotics and I have discussed with her a course of home antibiotics given the planned surgery. HOSSEIN
[2017-06-29] MEDS ORDERED: LACTATED RINGER'S 1000ML 1,000 ML IV SCH (02:59)
[2017-06-29] MEDS ORDERED: OXYCODONE/ACETAMINOPHEN 5-325 TAB PO PRN (03:00)
[2017-06-29] MEDS ORDERED: ONDANSETRON INJ 2 MG/ML 2 ML VIAL IV PRN ×2 (03:00→03:15)
[2017-06-29] MEDS ORDERED: DiphenhydrAMINE HCL 50 MG/ML VIAL IV PRN (03:00)
[2017-06-29] MEDS ORDERED: IBUPROFEN 600 MG TAB PO PRN (03:00)
[2017-06-29] MEDS ORDERED: MISOPROSTOL 100 MCG TAB PR ONE (03:08)
[2017-06-29] MEDS ORDERED: EpHEDrine SULFATE INJ 50 MG/ML AMP IV PRN (03:15)
[2017-06-29] MEDS ORDERED: FENTANYL CITRATE INJ 50 MCG/1 ML 2 ML VIAL IV PRN (03:15)
[2017-06-29] MEDS ORDERED: ATROPINE SULFATE 0.1 MG/ML 5ML SYR IV PRN (03:15)
[2017-06-29] MEDS ORDERED: HYDROmorphone INJ 1 MG/ML SYR IV PRN (03:15)
[2017-06-29] MEDS ORDERED: PROMETHAZINE HCL INJ 12.5 MG in SODIUM CHLORIDE 0.9% 50ML 50 ML IV PRN (03:15)
[2017-06-29] MEDS ORDERED: HYDROmorphone INJ 0.5 MG/0.5 ML SYR ONE (03:21)
[2017-06-29] MEDS ORDERED: PROPOFOL IV EMULSION 10 MG/ML 20 ML VIAL IV ONE (03:44)
[2017-06-29] MEDS ORDERED: OXYTOCIN INJ 10 UNITS/ML VIAL ONE (03:44)
[2017-06-29] MEDS ORDERED: DEXAMETHASONE SOD INJ 4 MG/ML VIAL ONE (03:44)
[2017-06-29] MEDS ORDERED: ROCURONIUM BROMID 50MG/5ML SYR ONE (03:44)
[2017-06-29] MEDS ORDERED: CEFAZOLIN SOD 1 GM VIAL ONE (03:44)
[2017-06-29] MEDS ORDERED: SUCCINYLCHOLINE CHLORIDE 20 MG/ML 10 ML VIAL IV ONE (03:44)
[2017-06-29] MEDS ORDERED: LIDOCAINE HCL 2% 2 ML VIAL (20MG/ML) ONE (03:44)
[2017-06-29] MEDS ORDERED: ONDANSETRON INJ 2 MG/ML 2 ML VIAL ONE (03:44)
--- NOTE | 2017-06-29 03:53 | Anesthesiology Progress Note ---
Anesthesia Post Op Note Date & Time Jun 29, 2017 at 03:52 Vital Signs Pain Intensity: 0 Vital Signs Past 12 Hours Date Time Temp Pulse Resp B/P (MAP) Pulse Ox O2 Delivery O2 Flow Rate FiO2 06/29/17 03:35 36.5 87 16 116/71 97 Room Air 06/29/17 03:25 89 16 118/81 96 Room Air 06/29/17 03:15 95 18 111/80 97 Room Air 06/29/17 03:05 96 18 111/71 98 Room Air 06/29/17 02:55 36.4 105 18 98/74 100 Room Air 06/29/17 00:16 36.6 81 18 95/55 98 Room Air 06/29/17 00:00 Room Air 06/28/17 23:03 78 20 91/41 96 06/28/17 22:07 96 Room Air 06/28/17 21:50 87 20 102/48 96 Room Air 06/28/17 20:06 98 20 118/69 99 Room Air 06/28/17 18:16 37.1 104 18 102/54 99 Room Air Notes Mental Status: alert / awake / arousable, participated in evaluation Pt Amnestic to Procedure: Yes Nausea / Vomiting: adequately controlled Pain: adequately controlled Airway Patency, RR, SpO2: stable & adequate BP & HR: stable & adequate Hydration State: stable & adequate Anesthetic Complications: no major complications apparent
[2017-06-29 04:00] LABS: ISTAT CREATININE 0.8 mg/dl (0.6-1.3); ISTAT HEMOGLOBIN 7.5 g/dl (12.0-16.0); ISTAT IONIZED CALCIUM 1.22 mmol/l (1.12-1.32)
[2017-06-29] MEDS ORDERED: CEFAZOLIN IV 2,000 MG in DEXTROSE 5% 50ML 50 ML IV SCH ×2 (04:00→06:00)
[2017-06-29 04:15] LABS: HEMATOCRIT 21.1 % (37-47)
[2017-06-29] MEDS: OXYTOCIN INJ 20 UNITS in LACTATED RINGER'S 1000ML 1,000 ML IV SCH ×2 (04:18→10:14)
--- NOTE | 2017-06-29 04:40 | OPERATIVE REPORT ---
DATE OF OPERATION: 06/29/2017 PREOPERATIVE DIAGNOSES: 1. Delayed hemorrhage. 2. Suspected retained products of conception. POSTOPERATIVE DIAGNOSES: 1. Delayed hemorrhage. 2. Retained products of conception. PROCEDURES: 1. Dilatation and evacuation and curettage. 2. Ultrasound guidance. 3. Placement of Bakri balloon. SURGEON: Dr. Jerri Henry. GERIATRIC NURSE: None. IV FLUIDS: 1000 mL ESTIMATED BLOOD LOSS: 500 mL FINDINGS: Exam under anesthesia with cervix dilated admitting one finger. Uterus about 14-16 wk size by palpation. Ultrasound by the bedside at the start of the procedure, does visualize on the posterior aspect of the endometrial cavity with tissue consistent with products of conception. Large approximately 3 x 2 cm placental tissue removed. Gentle curettage performed on posterior aspect where concern raised for possible further tissue. Bleeding vessel by Doppler noted. Bakri balloon inserted and inflated with approximately 90 mL of saline under ultrasound guidance. INDICATIONS: A 27-year-old 1, para 0, now 2 weeks from a normal vaginal delivery, who presented to the Emergency Department with delayed hemorrhage and ultrasound findings concerning for retained products of conception. She was counseled about her treatment options and recommended to go to the operating room. A consent form was signed. Of note, her starting hemoglobin was 8.6. Her discharge hemoglobin from her delivery was 8.9. PROCEDURE: The patient was taken to the operating room and identified. After adequate general anesthesia was obtained, she was placed in dorsal lithotomy position and prepped and draped in the usual sterile fashion. Ultrasound was by the bedside and visualized the uterus. Her uterus was easily visualized and thereafter the bladder was drained under sterile conditions. A weighted speculum and anterior retractor placed to visualize the cervix which was grasped in its anterior lip with an Allis clamp. It was already palpated and notably dilated and easily admitted one finger. The 12 mm suction curette was readied. The uterus was sounded to approximately 12 cm. The suction curette was used to clear the uterus of its contents. With the first pass, a large portion of placental tissue that was noted above was removed. Using ultrasound guidance, an area of concern in the posterior wall was attempted to be curettaged with minimal tissue return. Subsequent 2 additional passes with the suction curette with significant continued bleeding noted. IV dilute Pitocin had already been begun. Rectal Cytotec 800 mcg was given as well as 0.2 mg of IM Methergine. A Bakri balloon was readied. The bleeding continued. There was evidence of a bleeding site on the ultrasound, however, it did not seem like an AVM. The Bakri balloon was placed under ultrasound guidance. There is no evidence of perforation. The balloon was inflated with 90 mL of saline. The bleeding slowed significantly. A Ball catheter was placed with return of clear yellow urine. The bleeding vaginally from the open end of the Bakri balloon was monitored and on to at least 2 additional occasions, the ultrasound was used to see if blood collection was noted above the level of the balloon. This was not the case. An i-STAT hemoglobin was performed with the reading of approximately 7.6. The patient was returned to the supine position. The patient was awoken from anesthesia. She was transported to the recovery room in stable condition. All sponge, lap and needle counts were correct x2. I attest to the content of the Intraoperative Record and any orders documented therein. Any exceptions are noted below. OHSSEIN
--- NOTE | 2017-06-29 06:57 | Progress Note ---
Subjective Jun 29, 2017. Subjective conversation w/ patient, conversation w/ family, physical exam Ambulation: limited ambulation (cortez in place and bakri) Diet Tolerance: NPO Feeding Type: Breast Feeding Pain: cramping with sitting up Comment: denies cp, sob, n, v. No abdominal pain but does feel that with sitting up--- more like cramping and pressure. Objective Vital Signs Date Time Temp Pulse Resp B/P (MAP) Pulse Ox O2 Delivery O2 Flow Rate FiO2 06/29/17 06:10 36.8 91 16 109/67 (81) 100 Room Air 06/29/17 05:10 36.9 88 18 109/65 (80) 99 Room Air 06/29/17 04:40 36.8 97 18 117/79 (92) 99 Room Air 06/29/17 04:10 98 Room Air 06/29/17 04:10 36.5 93 20 117/78 (91) 98 Room Air 06/29/17 03:54 76 16 117/80 95 Room Air 06/29/17 03:45 86 16 118/73 96 Room Air 06/29/17 03:35 36.5 87 16 116/71 97 Room Air 06/29/17 03:25 89 16 118/81 96 Room Air 06/29/17 03:15 95 18 111/80 97 Room Air 06/29/17 03:05 96 18 111/71 98 Room Air 06/29/17 02:55 36.4 105 18 98/74 100 Room Air 06/29/17 00:16 36.6 81 18 95/55 98 Room Air 06/29/17 00:00 Room Air 06/28/17 23:03 78 20 91/41 96 06/28/17 22:07 96 Room Air 06/28/17 21:50 87 20 102/48 96 Room Air 06/28/17 20:06 98 20 118/69 99 Room Air 06/28/17 18:16 37.1 104 18 102/54 99 Room Air Urine output over 3hrs about 300cc. Physical Exam General Appearance: WELL-APPEARING, WD/WN, NO APPARENT DISTRESS Respiratory/Chest: lungs clear Cardiovascular: regular rate, rhythm Abdomen: non tender, soft Fundus: Firm, Relation to Umbilicus (4 down, bakri with no egress of blood noted. ) Extremities: no calf tenderness Laboratory Results Last 24 Hours Test 06/28/17 19:25 06/28/17 19:28 06/29/17 02:33 06/29/17 03:41 Urine Color YELLOW Urine Appearance CLEAR Urine pH 5.5 Urine Specific [place] 1.028 Urine Protein NEG Urine Glucose (UA) NEG Urine Ketones TRACE Urine Occult Blood TRACE Urine Nitrite NEG Urine Bilirubin NEG Urine Urobilinogen NEG Urine Leukocyte Esterase NEG Urine WBC (Auto) 1-5 /hpf Urine RBC (Auto) 0-4 /hpf Urine Hyaline Casts (Auto) 1-5 /lpf Urine Epithelial Cells (Auto) 5-10 /lpf Urine Bacteria (Auto) NEG Urine Test POS White Blood Count 10.97 K/uL Red Blood Count 2.98 M/uL Hemoglobin 8.6 g/dL 6.9 g/dL Hematocrit 26.3 % 21.1 % Mean Corpuscular Volume 88.3 fL Mean Corpuscular Hemoglobin 28.9 pg Mean Corpuscular Hemoglobin Concent 32.7 g/dl Platelet Count 293 K/uL Mean Platelet Volume 11.3 fL Neutrophils (%) (Auto) 72.9 % Lymphocytes (%) (Auto) 17.7 % Monocytes (%) (Auto) 5.7 % Eosinophils (%) (Auto) 3.2 % Basophils (%) (Auto) 0.2 % Neutrophils # (Auto) 8.01 K/uL Lymphocytes # (Auto) 1.94 K/uL Monocytes # (Auto) 0.62 K/uL Eosinophils # (Auto) 0.35 K/uL Basophils # (Auto) 0.02 K/uL RDW Standard Deviation 56.0 fL RDW Coefficient of Variation 17.2 % Immature Granulocyte % (Auto) 0.3 % Immature Granulocyte # (Auto) 0.03 K/uL Polychromasia 1+ Anisocytosis PRESENT Prothrombin Time 10.6 SECONDS Prothromb Time International Ratio 1.0 Activated Partial Thromboplast Time 24.5 SECONDS Partial Thromboplastin Ratio 0.9 Sodium Level 141 mmol/L Potassium Level 3.6 mmol/L Chloride Level 107 mmol/L Carbon Dioxide Level 27 mmol/L Anion Gap 7.0 mmol/L 14.0 mmol/L Blood Urea Nitrogen 12 mg/dl Creatinine 0.82 mg/dl Est Creatinine Clear Calc Drug Dose 93.6 ml/min Estimated GFR () 112.9 Estimated GFR (Non- 97.4 BUN/Creatinine Ratio 14.3 Random Glucose 117 mg/dl Calcium Level 8.7 mg/dl Total Bilirubin 0.1 mg/dl Aspartate Amino Transf (AST/SGOT) 17 U/L Alanine Aminotransferase (ALT/SGPT) 30 U/L Alkaline Phosphatase 90 U/L Total Protein 6.3 gm/dl Albumin 2.8 gm/dl Globulin 3.5 gm/dl Albumin/Globulin Ratio 0.8 Bedside Hemoglobin 7.5 g/dl Bedside Hematocrit 22 % Bedside Sodium 139 mEq/L Bedside Potassium 3.7 mEq/L Bedside Chloride 107 mEq/L Bedside Total CO2 22 mEq/l Bedside Blood Urea Nitrogen 6 mg/dl Bedside Creatinine 0.8 mg/dl Bedside Glucose (other) 90 mg/dl Bedside Ionized Calcium ([place]) 1.22 mmol/l Assessment and Plan Problem List Medical Problems: (1) Vaginal bleeding Status: Acute Post-Op Day#: 1 Continue Routine Care: discussed surgery and findings at length with patient. she is aware purpose of balloon but that we ultimately need to remove and see what happens. she is not noting any additional bleeding and her fundus would suggest to me adequate tamponade as its location is same as at time of surgery. h/h noted from pacu. will recheck in 4hr from then which is 8am. She has no symptoms of severe anemia but is aware may need transfusion. 2units PRBC are ready for her. she is also aware I am handing off care to Dr. Wright. We have her on antibiotics and discussed likely plan for outpt antibiotics as well. NPO until we see how bleeding does with balloon deflated. She verbalized understanding.
--- NOTE | 2017-06-29 07:23 | DIAGNOSTIC IMAGING REPORT ---
ULTRASOUND GUIDANCE PROVIDED FOR INTRAOPERATIVE STUDY CLINICAL HISTORY: Retained products of conception. COMPARISON STUDY: Pelvic ultrasound 06/28/2017. FINDINGS: There is a distended uterine cavity which is hypervascular consistent with retained product of conception. Ultrasound guidance was provided for dilatation and curettage. Final images demonstrate a balloon filled uterine cavity. IMPRESSION: Ultrasound guidance provided for dilatation and curettage. Electronically signed by: Beny Bryant M.D. 06/29/2017 7:21 AM Dictated Date/Time: 06/29/2017 7:20 AM
[2017-06-29 08:14] LABS: BASO % 0.1 %; BASO ABS # 0.01 K/uL (0-0.2); HEMATOCRIT 22.4 % (37-47); IG% 0.4 %; LYMPH % 9.8 %; LYMPH ABS # 0.93 K/uL (1.2-3.4); MEAN CELL VOLUME 88.5 fL (80-100); MEAN CORPUSCULAR HEMOGLOBIN 27.7 pg (25-34); MEAN CORPUSCULAR HGB CONC 31.3 g/dl (32-36); MEAN PLATELET VOLUME 10.2 fL (7.4-10.4); MONO % 1.1 %; NEUT % 88.6 %; PLATELET COUNT 245 K/uL (130-400); RED BLOOD COUNT 2.53 M/uL (4.2-5.4); WHITE BLOOD COUNT 9.47 K/uL (4.8-10.8)
[2017-06-29 08:58] LABS: ANISOCYTOSIS PRESENT; COMPLETE YES; POLYCHROMASIA 1+
--- NOTE | 2017-06-29 09:10 | Progress Note ---
Progress Note Date of Service Jun 29, 2017. Progress Note reviewed case with Dr. Henry. Concern is that if we remove balloon here and she bleeds that we do not have interventional radiology. D/W [facility] [place], Dr. Ching and SICU physician. Transfer. Hang blood. Continue pitocin IV. SWAPNA
--- NOTE | 2017-07-05 15:01 | Discharge Summary ---
Discharge Summary Date of Service Day of Admission: Jun 28, 2017. Date of discharge\transfer: 06/29/2017 Discharge Summary Admission diagnoses: #1 delayed hemorrhage #2 severe anemia Discharge diagnoses: #1 same Procedures: #1 dilatation and evacuation and curettage #2 placement of Bakri balloon #3 transfer to tertiary care facility #4 transfusion Brief history and Hospital course: 27-year-old 1 para 0 who presented to the emergency department approximately 2 weeks with heavy vaginal bleeding. Evaluation in the emergency room included a hemoglobin of 8.6. The patient had on and off heavy bleeding since the prior Tuesday. Ultrasound done in the emergency room did show a area of concern for retained placenta with vascular flow. The patient was counseled to go to the operating room for above- stated procedure. See operative report for details. In short, a piece of placenta tissue was removed however subsequently acute bleeding was noted. It was not able to be controlled with uterotonic agents alone. For this reason a balloon was placed within the uterus and stabilized the bleeding. It is significant to mention that during the course of her surgery ultrasound was present and with the acute bleeding an arterial pumper was noted intrauterine. The patient's hemoglobin was followed and did drift downward and 2 units of packed red cells had been readied and were administered. Prior to this, in consideration of the need to back down the balloon with no available interventional radiology in our facility, a tertiary care facility was contacted. This would provide an alternative that could potentially save the uterus in case bleeding resumed with the balloon removal. The patient was accepted for transfer at . She was sent by ambulance. Detailed counseling was given to the patient during the course of her admission and prior to her transfer. She desired to proceed.
== END 2017-06-29 11:17 | disposition short-term general hospital (02) ==
LOC: C.EDB 18:14 → C.MS4N 22:08 → ENRESERV 22:14
PROVIDERS: ADMIT Obstetrics & Gynecology; ATTEND Obstetrics & Gynecology
DX: O72.2 Delayed and secondary postpartum hemorrhage (principal); J45.909 Unspecified asthma, uncomplicated; Z79.899 Other long term (current) drug therapy